=== PATIENT | male | born 1995 | race African-American/Black ===

== ENCOUNTER 2020-06-21 20:13 | Inpatient (IN) | payer OTHER, BC ==
[~2020-06-21 20:13] MED LIST: Iopamidol-370 76% 500 ML 1 ML ONE
[2020-06-21] MEDS ORDERED: Morphine 4 MG/ML VIAL ONE ×3 (20:18→23:08)
[2020-06-21] MEDS ORDERED: Morphine 2 MG/ML VIAL ONE (20:18)
[2020-06-21] MEDS ORDERED: Boostrix 0.5 ML (Tdap) VIAL ONE ×2 (20:37→21:57)
[2020-06-21 20:58] LABS: Hemoglobin 16.6 g/dL (14.0-18.0); Mean Corpuscular HGB CONC 34.2 g/dL (32.0-36.0); Mean Corpuscular Hemoglobin 28.9 pg (27.0-31.0); Mean Corpuscular Volume 84.7 fL (78.0-98.0); Mean Platelet Volume 8.4 fL (7.4-10.4); Platelet Count 358 thou/uL (130-400); RBC Distribution Width 12.6 % (11.5-14.5); Red Blood Cell (RBC) Count 5.74 mill/uL (4.70-6.10)
--- NOTE | 2020-06-21 21:04 | RAD ---
EXAM: 2 views of the left humerus HISTORY: left arm pain COMPARISON: None FINDINGS: 2 views of the left humerus shows no evidence of acute fracture or dislocation. No degenera tive changes are seen. No soft tissue swelling is present. IMPRESSION: No evidence of acute osseous abnormality.
--- NOTE | 2020-06-21 21:05 | RAD ---
EXAM: 2 views of the right tibia/fibula HISTORY: Leg pain COMPARISON: None FINDINGS: There is no evidence of acute fracture or dislocation. Mild lateral soft tissue swelling is seen. No degenerative changes are seen in the knee or ankle. IMPRESSION: No evidence of acute osseous abnormality.
--- NOTE | 2020-06-21 21:06 | RAD ---
EXAM: 2 views of the left femur HISTORY: Leg pain COMPARISON: None FINDINGS: There is no evidence of acute fracture or dislocation. No soft tissue swelling is seen. No degenerative changes are seen in the hip. IMPRESSION: No evidence of acute osseous abnormality.
--- NOTE | 2020-06-21 21:08 | RAD ---
EXAM: 2 views of the left forearm HISTORY: Forearm pain COMPARISON: None FINDINGS: There is a fracture of the proximal third of the ulna. There is dislocation of the radial h ead. Fracture fragments are seen adjacent to the elbow. Moderate diffuse soft tissue swelling is seen. No degenerative changes are seen in the wrist or elbow. IMPRESSION: Monteggia fracture dislocation of the forearm. Fracture fragments are seen adjacent to th e elbow and a dedicated elbow radiographs is recommended to better evaluate the proximal ulna.
--- NOTE | 2020-06-21 21:11 | RAD ---
EXAM: 2 views of the left hand COMPARISON: None HISTORY: Hand pain FINDINGS: 2 views of the hand shows no evidence of acute fracture or dislocation. No degenerative kamille nges are seen. No soft tissue swelling is present. IMPRESSION: Unremarkable exam.
[2020-06-21 21:13] LABS: Band 10 % (5-11); Eosinophils 1 % (0-10); Lymphocytes 14 % (21-51); MDiff Complete? YES; Monocytes 7 % (0-10); Neutrophil 68 % (42-75)
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
[2020-06-21 21:44] LABS: ALT (SGPT) 67 U/L (8-55); AST (SGOT) 93 U/L (5-34); Albumin 3.5 g/dL (3.5-5.0); Alkaline Phosphatase 97 U/L (40-110); Anion Gap 12 mmol/L (10-20); BUN (Urea Nitrogen) 12 mg/dL (8.9-20.6); Bilirubin, Total 0.4 mg/dL (0.2-1.2); Calc. Creatinine Clearance 0 mL/min (70-130); Calcium 7.8 mg/dL (7.8-10.44); Carbon Dioxide 24 mmol/L (22-29); Chloride 103 mmol/L (98-107); Glucose 188 mg/dL (70-105); Potassium 3.5 mmol/L (3.5-5.1); Protein, Total 6.5 g/dL (6.0-8.3); Sodium 135 mmol/L (136-145)
--- NOTE | 2020-06-21 22:47 | RAD ---
EXAM: 2 views of the left elbow HISTORY: Elbow pain COMPARISON: None FINDINGS: An elbow effusion is seen. There is a comminuted fracture of the olecranon with dislocation of the elbow joint including the olecranon and radial head. There is a separate fracture of the proximal aspect of the ulna. No significant degenerative changes are seen. Moderate diffuse soft tis enzo swelling is present. IMPRESSION: Fracture dislocation of the left elbow as above
[2020-06-21] MEDS ORDERED: Morphine 2 MG/ML VIAL SLOW IVP PRN (23:22)
[2020-06-21] MEDS ORDERED: TETANUS AND DIPHTHERIA TOX/PF 0.5 ML DISP.SYRIN IM ONE (23:22)
[2020-06-21] MEDS ORDERED: Dextrose 5% in Water 1,000 ML IV PRN (23:22)
[2020-06-21] MEDS ORDERED: Ondansetron PF 4 MG/2 ML Vial IVP PRN (23:22)
[2020-06-21] MEDS ORDERED: Morphine 4 MG/ML VIAL SLOW IVP PRN (23:22)
[2020-06-21] MEDS ORDERED: Dextrose 50% Abboject 50 ML SYRINGE SLOW IVP PRN (23:22)
[2020-06-21] MEDS ORDERED: Lorazepam 2 MG/ML VIAL SLOW IVP PRN (23:22)
[2020-06-21] MEDS ORDERED: Ibuprofen 600 MG TAB PO PRN (23:29)
[2020-06-21] MEDS ORDERED: traMADol HCl 50 MG TAB PO PRN (23:29)
[2020-06-21] MEDS ORDERED: Sodium Chloride 0.9% 1,000 ML IV SCH (23:59)
[2020-06-22] MEDS: Sodium Chloride 0.9% 1,000 ML IV SCH ×4 (01:43→21:22)
[2020-06-22] MEDS: Acetaminophen 500 MG TAB PO SCH ×5 (01:48→23:56)
[2020-06-22] MEDS: Cyclobenzaprine 10 MG TAB PO PRN (01:48)
[2020-06-22 02:38] VITALS: BMI 34.3
[2020-06-22] MEDS: traMADol HCl 50 MG TAB PO SCH ×5 (03:05→23:56)
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
[2020-06-22] MEDS ORDERED: Morphine 4 MG/ML VIAL SLOW IVP PRN (08:08)
[2020-06-22] MEDS ORDERED: CEFAZOLIN 2 GM in Premix Bag 1 BAG IVPB SCH (08:15)
[2020-06-22] MEDS ORDERED: Bacitracin 1 PK TOP SCH (09:00)
[2020-06-22] MEDS ORDERED: PROPOFOL 200 MG/20 ML VIAL ONE (09:06)
[2020-06-22] MEDS ORDERED: Rocuronium Bromide 10 MG/ML (10ML VIAL) ONE (09:06)
[2020-06-22] MEDS ORDERED: Glycopyrrolate 0.2 MG/ML 5 ML SYRINGE ONE (09:06)
[2020-06-22] MEDS ORDERED: Lidocaine 1% PF 5 ML VIAL ONE (09:06)
--- NOTE | 2020-06-22 09:21 | PRG ---
DATE OF SERVICE: 06/22/2020 SUBJECTIVE: Please see Julisa Anders NP note for full details. Mr. Shin is complaining of left arm pain today. No shortness of breath. He has been hemodynamically neurologically stable overnight. OBJECTIVE: VITAL SIGNS: He is afebrile. Vital signs are stable. CHEST: Clear. HEART: Regular rate. ABDOMEN: Soft, nontender. ASSESSMENT: Left forearm fracture dislocation, left elbow fracture. PLAN: Dr. Johnson to take to OR later today for repair. Trauma team will continue to follow. Job ID: [id number]
[2020-06-22 09:43] LABS: SARS-CoV-2 PCR by NAA Not Detected (NotDetected)
[2020-06-22] MEDS: Senokot S 8.6-50 MG TAB PO SCH ×2 (10:35→21:22)
[2020-06-22] MEDS: Famotidine 20 MG TAB PO SCH ×2 (10:35→21:22)
[2020-06-22] MEDS: Polyethylene Glycol 3350 17 GM Packet PO SCH (10:35)
[2020-06-22 11:39] LABS: Anion Gap 13 mmol/L (10-20); BUN (Urea Nitrogen) 9 mg/dL (8.9-20.6); Calc. Creatinine Clearance 186 mL/min (70-130); Calcium 7.7 mg/dL (7.8-10.44); Carbon Dioxide 20 mmol/L (22-29); Chloride 108 mmol/L (98-107); Glucose 103 mg/dL (70-105); Potassium 4.1 mmol/L (3.5-5.1); Sodium 137 mmol/L (136-145)
[2020-06-22] MEDS: hydrALAZINE 20 MG/ML VIAL SLOW IVP PRN (12:23)
[2020-06-22] MEDS: Bacitracin Zinc Ointment 30 gm TUBE TOP SCH ×2 (12:27→21:22)
[2020-06-22 13:03] LABS: Amphetamine Not Detected (NotDetected); Barbiturates Screen Not Detected (NotDetected); Benzodiazepine Screen Not Detected (NotDetected); Cocaine Metabolite Screen Not Detected (NotDetected); Medtox Control Line Valid? VALID (VALID); Medtox Reader # READER 4; Methadone Not Detected (NotDetected); Methamphetamine Not Detected (NotDetected); Opiate Screen Detected (NotDetected); Oxycodone Screen Not Detected (NotDetected); Phencyclidine (PCP) Not Detected (NotDetected); THC/Cannabinoid Screen Not Detected (NotDetected); Tricyclic Screen Not Detected (NotDetected)
[2020-06-22] MEDS ORDERED: Promethazine HCl 25 MG/ML VIAL SLOW IVP PRN (16:06)
[2020-06-22] MEDS ORDERED: Ondansetron HCl/PF 4 MG/2 ML Vial IVP PRN (16:06)
[2020-06-22] MEDS ORDERED: Promethazine HCl 25 MG/ML VIAL IM PRN (16:06)
[2020-06-22] MEDS ORDERED: Fentanyl 100 MCG/2 ML VIAL ONE ×3 (16:36→19:49)
[2020-06-22] MEDS ORDERED: EPINEPHrine 1 MG/ML AMP ONE (16:59)
[2020-06-22] MEDS ORDERED: Bupivacaine PF 0.5% 30 ML VIAL ONE (16:59)
[2020-06-22] MEDS ORDERED: HYDROmorphone 2 MG/ML VIAL ONE (18:14)
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
[2020-06-22] MEDS ORDERED: Labetalol HCl 100 MG/20 ML VIAL ONE (19:42)
[2020-06-22] MEDS ORDERED: HYDROmorphone 0.5 MG/0.5 ML SYRINGE ONE (20:19)
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
[2020-06-23] MEDS: Acetaminophen 500 MG TAB PO SCH ×5 (00:51→23:21)
[2020-06-23] MEDS: CEFAZOLIN 2 GM in Premix Bag 1 BAG IVPB SCH ×2 (00:52→09:46)
[2020-06-23] MEDS: traMADol HCl 50 MG TAB PO SCH ×5 (00:52→23:29)
[2020-06-23] MEDS: Sodium Chloride 0.9% 1,000 ML IV SCH (05:14)
[2020-06-23 06:45] LABS: #Lymphocytes 0.9 thou/uL (1.20-3.40); #Monocytes 1.1 thou/uL (0.11-0.59); #Neutrophils 9.9 thou/uL (1.40-6.50); %Eosinophils 0.1 % (0.0-10.0); %Lymphocytes 7.3 % (21.0-51.0); %Monocytes 9.5 % (0.0-10.0); %Neutrophils 83.1 % (42.0-75.0); Hemoglobin 13.3 g/dL (14.0-18.0); Mean Corpuscular Hemoglobin 28.7 pg (27.0-31.0); Mean Corpuscular Volume 84.5 fL (78.0-98.0); Mean Platelet Volume 7.4 fL (7.4-10.4); Platelet Count 240 thou/uL (130-400); RBC Distribution Width 12.6 % (11.5-14.5); Red Blood Cell (RBC) Count 4.64 mill/uL (4.70-6.10); White Blood Cell (WBC) Count 11.9 thou/uL (4.8-10.8)
[2020-06-23 06:59] LABS: Anion Gap 10 mmol/L (10-20); BUN (Urea Nitrogen) 9 mg/dL (8.9-20.6); Calc. Creatinine Clearance 179 mL/min (70-130); Calcium 8.2 mg/dL (7.8-10.44); Carbon Dioxide 23 mmol/L (22-29); Chloride 107 mmol/L (98-107); Glucose 134 mg/dL (70-105); Magnesium 1.7 mg/dL (1.6-2.6); Potassium 4.3 mmol/L (3.5-5.1); Sodium 136 mmol/L (136-145)
--- NOTE | 2020-06-23 07:53 | RAD ---
Exam:Intraoperative fluoroscopy HISTORY: ORIF COMPARISON: None FINDINGS: 2 views of the left elbow demonstrate internal fixation of a proximal ulna fracture. Fractu re lucency persists. Exposure: 6 seconds, 0.25 mg IMPRESSION: As above
[2020-06-23] MEDS: Famotidine 20 MG TAB PO SCH ×2 (09:46→19:48)
[2020-06-23] MEDS: Senokot S 8.6-50 MG TAB PO SCH ×2 (09:47→19:48)
[2020-06-23] MEDS: Polyethylene Glycol 3350 17 GM Packet PO SCH (09:47)
[2020-06-23] MEDS: Bacitracin Zinc Ointment 30 gm TUBE TOP SCH ×2 (09:48→19:52)
[2020-06-23] MEDS: hydrALAZINE 20 MG/ML VIAL SLOW IVP PRN (13:52)
[2020-06-23] MEDS: Cyclobenzaprine 10 MG TAB PO PRN (16:38)
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
[2020-06-23] MEDS: Acetaminophen/Codeine 30-300mg Tablet PO PRN (23:29)
[2020-06-24] MEDS: traMADol HCl 50 MG TAB PO SCH ×2 (06:22→14:25)
[2020-06-24] MEDS: Acetaminophen 500 MG TAB PO SCH ×2 (06:23→11:17)
[2020-06-24] MEDS: Senokot S 8.6-50 MG TAB PO SCH (09:29)
[2020-06-24] MEDS: Polyethylene Glycol 3350 17 GM Packet PO SCH (09:29)
[2020-06-24] MEDS: Acetaminophen/Codeine 30-300mg Tablet PO PRN (11:15)
[2020-06-24] MEDS: Bacitracin Zinc Ointment 30 gm TUBE TOP SCH (11:21)
[2020-06-24 15:36] VITALS: BP 142/92; TEMP 98.2
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
== END 2020-06-24 15:49 | disposition home or self-care (01) | DRG 511 ==
LOC: ERS 20:13 → SURG B 23:22
PROVIDERS: ADMIT Surgery; ATTEND Surgery
PROC: 0PSL04Z Reposition Left Ulna with Internal Fixation Device, Open Approach (ICD-10-PCS; principal; 2020-06-22)
PROC: 0PSJ0ZZ Reposition Left Radius, Open Approach (ICD-10-PCS; 2020-06-22)
DX: S52.272A Monteggia's fracture of left ulna, initial encounter for closed fracture (principal); S06.0X9A Concussion with loss of consciousness of unspecified duration, initial encounter; N17.9 Acute kidney failure, unspecified; S27.321A Contusion of lung, unilateral, initial encounter; Z20.822 Contact with and (suspected) exposure to COVID-19; M41.9 Scoliosis, unspecified; F17.290 Nicotine dependence, other tobacco product, uncomplicated; S50.811A Abrasion of right forearm, initial encounter; S70.212A Abrasion, left hip, initial encounter; S80.212A Abrasion, left knee, initial encounter; S80.211A Abrasion, right knee, initial encounter; N28.1 Cyst of kidney, acquired; Z23 Encounter for immunization; Y92.410 Unspecified street and highway as the place of occurrence of the external cause; V49.40XA Driver injured in collision with unspecified motor vehicles in traffic accident, initial encounter
CPT/HCPCS: 36415; 70450; 71260; 72125; 74177; 76000; 80048; 80053; 80306; 80307; 83735; 84100; 85025; 87635; 90471; 90715; 96374; 96376; C1713; G0390; J0171; J0360; J0690; J1170; J2270; J2704; J3010; Q9967; S0020; U0003; U0005